=== PATIENT | female | born 1980 | race Caucasian/White ===

== ENCOUNTER 2019-08-24 14:21 | Emergency (ER) | payer OTHER ==
[~2019-08-24] VITALS: Ht 154.9 cm; Wt 88.9 kg
[2019-08-24 14:27] VITALS: BP 119/73
--- NOTE | 2019-08-24 14:30 | NUR ---
R EYE BLURRY VISION X 4 DAYS. PT DENIES TRUAMA. PT STATES IT WAS IF A CAMERA SNAPPED A PICTURE IN THE CORNER OF HER EYE AND THEN SHE STARTED TO LOOSE VISION. DENIES PAIN. STATES SHE WAS REFERRED FROM [facility] FOR [facility]GERY DUE TO INSURANCE FOR DETACHED RETINA. PT ALERT AND AWAKE. AMBULATORY WITH STEADY GAIT. VS STABLE PMH- DENIES
--- NOTE | 2019-08-24 14:40 | NUR ---
DR ROSADO ON PHONE SPEAKING WITH [facility] OPTHALMOLOGIST
[2019-08-24 15:45] VITALS: BP 123/70
--- NOTE | 2019-08-24 15:45 | NUR ---
Patient discharged with v/s stable. Written and verbal after care instructions given and explained. Patient verbalized understanding. Ambulatory with steady gait. All questions addressed prior to discharge. Advised to follow up with PMD. PT GIVEN REFERRAL TO [facility] AND INSTRUCTED TO FOLLOW UP IMMEDIATELY.
== END 2019-08-24 15:45 | disposition home or self-care (01) ==
LOC: MED 14:21
DX: H33.8 Other retinal detachments (principal)
CPT/HCPCS: 99281